=== PATIENT | female | born 1955 | race Hispanic/Latino ===

== ENCOUNTER → 2021-10-31 | Outpatient (CLI) | payer SELFPAY | END | disposition home or self-care (01) | LOC: RAH 14:25 | PROVIDERS: ATTEND Internal Medicine Cardiovascular Disease | DX: Z13.6 Encounter for screening for cardiovascular disorders (principal) | CPT/HCPCS: 75571 ==

== ENCOUNTER 2023-01-07 05:42 | Day surgery (SDC) | payer MEDICARE ==
[2023-01-05 14:39] VITALS: BP 163/82; PULSE 68; RESP 13
[2023-01-05 16:31] LABS: BASOPHILS # (AUTO) 0.05 K/uL (0.00-0.20); BASOPHILS % (AUTO) 0.7 % (0.0-5.0); EOSINOPHILS # (AUTO) 0.21 K/uL (0.00-0.70); EOSINOPHILS % (AUTO) 2.8 % (0.0-8.0); HEMATOCRIT 39.1 % (36-48); IMMATURE GRANULOCYTE ABSOLUTE 0.02 K/uL (0-1); LYMPHOCYTES # (AUTO) 2.3 K/uL (1.0-4.8); LYMPHOCYTES % (AUTO) 30.3 % (21.0-51.0); MEAN CORPUSCULAR HEMOGLOBIN 28.1 pg (27.0-33.0); MEAN CORPUSCULAR HGB CONC 33.8 g/dL (32.0-36.0); MEAN CORPUSCULAR VOLUME 83.2 fL (79-99); MONOCYTES # (AUTO) 0.5 K/uL (0.1-1.0); MONOCYTES % (AUTO) 6.7 % (3.0-13.0); NEUTROPHILS # (AUTO) 4.4 K/uL (1.8-7.7); NEUTROPHILS % (AUTO) 59.2 % (40.0-77.0); PLATELET COUNT (AUTO) 308 K/uL (130-400); RED CELL DISTRIBUTION WIDTH 14.2 % (11.0-15.5); WHITE BLOOD COUNT (AUTO) 7.4 K/uL (4.8-10.8)
[2023-01-05 16:48] LABS: CREATININE 2.4 mg/dL (0.5-1.5); POTASSIUM 4.2 mmol/L (3.5-5.1)
[2023-01-07] VITALS (13 sets, daily range): BP systolic 115–150; BP diastolic 59–77; PULSE 61–69; RESP 11–18
[~2023-01-07] VITALS: Ht 152.4 cm; Wt 81.9 kg
[~2023-01-07 05:42] MED LIST: ACET-66 PO; AEC81 PO; AMLO-257 PO; BIOT10005 PO; BISO5TAB19 PO; BRIM15OS OD; DIAZ5TAB4 PO; GABA-529 PO; INSU100C6 SQ; INSU100V37 SQ; MONT-39 PO; MULT-1250 PO; ONDA4TAB10 PO; ROSU5TAB12 PO; SODI650T PO; VENL75CA97 PO; XALA2.5OS OD; ZOLP5TAB8 PO
[2023-01-07] MEDS ORDERED: 0.9%NACL 1000ML 1,000 ML IV ONE (06:23)
[2023-01-07] MEDS ORDERED: BUPIVACAINE/PF 0.25% 30ML VIAL IJ ONE (06:52)
[2023-01-07] MEDS ORDERED: LIDOCAINE HCL 1% 10 ML VIAL ONE (06:53)
[2023-01-07] MEDS ORDERED: PROPOFOL 10 MG/ML 20ML VIAL IV ONE (06:58)
[2023-01-07] MEDS ORDERED: MIDAZOLAM HCL 1 MG/ML 2ML VIAL ONE (06:59)
[2023-01-07] MEDS ORDERED: FENTANYL CITRATE PF 50 MCG/1 ML 2ML VIAL ONE (06:59)
[2023-01-07] MEDS ORDERED: IOHEXOL 180 MG/ML 20 ML VIAL ONE (07:06)
== END 2023-01-07 09:00 | disposition home or self-care (01) ==
LOC: DAH 05:42
PROVIDERS: ATTEND Neurological Surgery
DX: M53.3 Sacrococcygeal disorders, not elsewhere classified (principal); Z20.822 Contact with and (suspected) exposure to COVID-19; E11.22 Type 2 diabetes mellitus with diabetic chronic kidney disease; I12.0 Hypertensive chronic kidney disease with stage 5 chronic kidney disease or end stage renal disease; N18.6 End stage renal disease; E66.9 Obesity, unspecified; Z98.890 Other specified postprocedural states; Z90.710 Acquired absence of both cervix and uterus; Z98.891 History of uterine scar from previous surgery; Z79.899 Other long term (current) drug therapy
CPT/HCPCS: 87426; 80048; 85025; 36415; 93005; 72202; 82948 ×2; A6260; G0260; A4663; J7030 ×2; A4215 ×2; J3010; J3490 ×2; J2250; J2704; J1030; Q9965; A4930; A4223; A4222; A4221

== ENCOUNTER → 2023-03-11 | Outpatient (CLI) | payer MEDICARE | END | disposition home or self-care (01) | LOC: RAH 12:43 | PROVIDERS: ATTEND Internal Medicine Cardiovascular Disease | DX: I34.0 Nonrheumatic mitral (valve) insufficiency (principal); G45.9 Transient cerebral ischemic attack, unspecified; I51.7 Cardiomegaly; I27.21 Secondary pulmonary arterial hypertension | CPT/HCPCS: 93306; 96374 ==